=== PATIENT | female | born 1990 | race African-American/Black ===

== ENCOUNTER 2017-08-18 16:15 | Emergency (ER) | payer OTHER ==
[~2017-08-18] VITALS: Ht 172.7 cm; Wt 86.2 kg
--- NOTE | ~2017-08-18 | EKG ---
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: [id number] : 1990 Requested By: Edith Ortiz Order Number: [id number] MD: Agus Jackson Measurements Intervals [place] Rate: 74 P: 55 DE: 156 QRS: 53 QRSD: 84 T: 43 QT: 373 QTc: 414 Interpretive Statements Sinus rhythm Baseline wander in lead(s) III Compared to ECG 04/19/2014 05:34:06 Sinus arrhythmia no longer present Short DE interval no longer present Myocardial infarct finding no longer present Electronically Signed On 08-18-2017 22:42:39 CDT by Agus Jackson [email or web address] <ELECTRONICALLY SIGNED> By: Agus Jackson MD 08/18/17 [id number] 1626 1626 Agus Jackson MD /EPI
[~2017-08-18 16:15] MED LIST: AMBIEN 5 MG TABL5 M1 PO; BIRTH CONTROL; DERMOPLAST SPRA56 ML TOP; DOXYCYCLINE 10100 M1 PO; FERROUS GLUCON325 M4 PO; FLAGYL500 MG PO; HYDROCORTISONE120 M1 TOP; IBUPROFEN 600600 M1 PO; IBUPROFEN 800800 MG PO; NAPROSYN500 MG PO; NOHOMEMEDICATIONS; NORCO 5-325 TA1 EACH PO; PEPCID20 MG PO; PRENA1 SOFTGEL1 EACH PO; PROMETHAZINE-C120 ML PO; SENOKOT-S1 TA1 PO; TUCKS MEDICATE1 EAC1 TOP; TYLENOL EX-STR500 M2 PO; XANAX 0.25 MG0.25 MG PO; ZPAK PO
[2017-08-18] MEDS ORDERED: NAPROSYN500 MG PO (18:30)
== END 2017-08-18 18:39 | disposition home or self-care (01) ==
LOC: ER 16:15
DX: R07.89 Other chest pain (principal); I10 Essential (primary) hypertension; F10.99 Alcohol use, unspecified with unspecified alcohol-induced disorder; F17.210 Nicotine dependence, cigarettes, uncomplicated; R07.81 Pleurodynia; F12.19 Cannabis abuse with unspecified cannabis-induced disorder

== ENCOUNTER 2021-11-22 11:14 | Emergency (ER) | payer OTHER ==
[~2021-11-22] VITALS: Ht 172.7 cm; Wt 99.8 kg
[2021-11-22 11:15] VITALS: BP 144/89
[2021-11-22] MEDS ORDERED: NOHOMEMEDICATIONS (11:21)
[2021-11-22] MEDS ORDERED: CEPHALEXIN500 MG PO (11:34)
== END 2021-11-22 11:40 | disposition home or self-care (01) ==
LOC: ER 11:14
DX: S61.217A Laceration without foreign body of left little finger without damage to nail, initial encounter (principal); I10 Essential (primary) hypertension; F12.90 Cannabis use, unspecified, uncomplicated; W45.8XXA Other foreign body or object entering through skin, initial encounter; Y93.89 Activity, other specified; Y92.89 Other specified places as the place of occurrence of the external cause; Y99.8 Other external cause status